=== PATIENT | male | born 1995 | race Caucasian/White ===

== ENCOUNTER 2019-05-28 14:03 | Emergency (ER) | payer OTHER ==
--- NOTE | 2019-05-28 14:11 | UC ---
Dizzy HPI HPI Summary: 24 yo male presents with dizziness. He tells me that over the last 2-3 days he has felt dizziness and weakness. 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 He does mention that yesterday he had an upset stomach and multiple instances of vomiting. Today he feels nauseous, but has not had any vomiting and he is tolerating po well - last ate before coming here. This morning he was working and noticed his symptoms worsen. He went and took a nap in his boss' truck. Boss bought him something to eat and brought him to . Currently pt states mild dizziness and just feels weak all over. He denies headache, SOB, chest pain/pressure, abdominal pain, swelling, or neck pain. He has a history of open heart surgery x4 with the last operation being at age 11. All surgeries through [facility] in [place]. He does not take any medications and denies illicit drug use. - History Of Current Complaint Stated Complaint: DIZZINESS, AND SWEATS Time Seen by Provider: 05/28/19 14:08 Hx Obtained From: Patient Onset/Duration: Sudden Onset - Allergies/Home Medications Allergies/Adverse Reactions: Allergies Allergy/AdvReac Type Severity Reaction Status Date / Time No Known Allergies Allergy Verified 05/28/19 14:19 PMH/Surg Hx/FS Hx/Imm Hx - Additional Past Medical History Additional PMH: Open heart surgery - Surgical History Surgical History: Yes - Family History Known Family History: Positive: None - Social History Occupation: Employed Full-time Lives: With Family Alcohol Use: None Substance Use Type: None Smoking Status (MU): Never Smoked Tobacco Review of Systems All Other Systems Reviewed And Are Negative: No Constitutional: Positive: Negative Skin: Positive: Negative Eyes: Positive: Negative ENT: Positive: Negative Respiratory: Positive: Negative Cardiovascular: Positive: Negative Gastrointestinal: Positive: Vomiting - resolved, Nausea Genitourinary: Positive: Negative Neurovascular: Positive: Negative Musculoskeletal: Positive: Negative Neurological: Positive: Other - dizziness and weakness Psychological: Positive: Negative Physical Exam - Summary Physical Exam Summary: GENERAL: NAD. WDWN. No pain distress. SKIN: Large vertical surgical scar on chest into upper abdomen. HEENT: Head: AT/NC Eyes: EOM intact. Conjunctiva clear without inflammation or discharge. Ears: Hearing grossly normal. TMs intact, no bulging, erythema, or edema. Nose: Nasal mucosa pink and moist. NTTP maxillary and frontal sinus. Throat: Posterior oropharynx without exudates, erythema, or tonsillar enlargement. Uvula midline. NECK: Supple. Nontender. No lymphadenopathy. CHEST: CTAB. No accessory muscle use. Breathing comfortably and in no distress. CV: RRR. Obvious pansystolic murmur. Pulses intact. Cap refill <2seconds ABDOMEN: Soft. NTTP. No distention or guarding. Bowel sounds present NEURO: Alert. PSYCH: Age appropriate behavior. Triage Information Reviewed: Yes Vital Signs: Vital Signs: Temp Pulse Resp BP Pulse Ox 97.8 F 90 16 120/83 100 05/28/19 14:14 05/28/19 14:14 05/28/19 14:14 05/28/19 14:14 05/28/19 14:14 Vital Signs Reviewed: Yes Diagnostics - EKG Summary of EKG Findings: 81 bpm NSR. Bilateral enlargement. Anteroseptal infarcy age indeterminate. No STEMI as read by Dr. Iris New Course/Dx - Course Course Of Treatment: EKG as above. His symptoms could be related to his recent suspected viral GI issues, but given his cardiac history and worsening weakness and dizziness on exertion - I recommend pt be further evaluated in the ED. He was agreeable to this. I recommended ambulance transfer, but he declined and will have his boss with him today drive him now. He was given 324mg chewable ASA prior to departure. - Differential Dx/Diagnosis Provider Diagnosis: Dizziness, Weakness, History of heart surgery Discharge ED - Sign-Out/Discharge Documenting (check all that apply): Patient Departure All imaging exams completed and their final reports reviewed: No Studies - Discharge Plan Condition: Stable Disposition: HOME-RECOMMEND TO ED Referrals: Zac Lamas MD [Primary Care Provider] - Additional Instructions: Please go to the ER for further evaluation of your dizziness and weakness YOU HAVE DECLINED TRANSFER TO THE ER BY AMBULANCE. BE ADVISED THAT NOT TRAVELING IN A MONITORED SETTING YOU COULD BE RISKING WORSENING OF YOUR CONDITION THAT COULD POSE A THREAT TO YOUR LIFE, HEALTH, AND MEDICAL SAFETY. - Billing Disposition and Condition Condition: STABLE Disposition: Home-Recommend to ED - Attestation Statements Provider Attestation: Patient not seen by me I was available for consult Chart reviewed
[2019-05-28 14:19] VITALS: BP 120/83
[2019-05-28] MEDS ORDERED: Aspirin EC TAB* 81 MG TAB.EC PO ONE (14:31)
[2019-05-28] MEDS ORDERED: Aspirin 81 mg CHEW TAB* 81 MG TAB.CHEW PO ONE (14:31)
== END 2019-05-28 14:45 | disposition home health service (06) ==
LOC: UCEAST 14:03
DX: R42 Dizziness and giddiness (principal); R53.1 Weakness
CPT/HCPCS: 93005; 99212; A9270-GY; G0463

== ENCOUNTER 2019-05-28 14:54 | Emergency (ER) | payer OTHER ==
[2019-05-28 15:18] LABS: ABS Eosinophils 0.1 10^3/ul (0-0.6); ABS Lymphocytes 1.2 10^3/ul (1.0-4.8); ABS Monocytes 0.8 10^3/ul (0-0.8); ABS Neutrophils 5.2 10^3/ul (1.5-7.7); Eosinophil % 0.9 %; Hematocrit 44 % (42-52); Hemoglobin 14.9 g/dL (14.0-18.0); Lymphocyte % 16.3 %; Mean Corpuscular HGB Conc 34 g/dL (31-36); Mean Corpuscular Hemoglobin 31 pg (27-31); Mean Corpuscular Volume 91 fL (80-94); Mean Platelet Volume 7.2 fL (7.4-10.4); Platelet Count 246 10^3/uL (150-450); Red Blood Count 4.82 10^6 /uL (4.18-5.48); Red Cell Distribution Width 13 % (10-15); White Blood Count 7.4 10^3/uL (3.5-10.8)
[2019-05-28 15:25] LABS: INR 1.27 (0.82-1.09)
[2019-05-28 15:55] LABS: Albumin 4.4 g/dL (3.2-5.2); Albumin/Globulin Ratio 1.6 (1-3); BUN/Creatinine Ratio 15.7 (8-20); Calcium 9.3 mg/dL (8.6-10.3); EGFR African American 128.2 (>60); EGFR Non-African American 105.9 (>60); Globulin 2.7 g/dL (2-4); Potassium 4.4 mmol/L (3.5-5.0); Total Bilirubin 1.1 mg/dL (0.2-1.0); Total Protein 7.1 g/dL (6.4-8.9)
--- NOTE | 2019-05-28 18:33 | ED ---
Complex/Multi-Sys Presentation - HPI Summary HPI Summary: This pt is a 24 y/o male, with hx of pulmonary atresia with repair, presenting to [facility] c/o fatigue, hills, generalized weakness, myalgia today. Pt reports he woke up feeling generalized weakness today and feeling fatigued. He notes these symptoms began 5 days ago and thought it was viral. Pt states these symptoms lasted over the last few days but came back today. 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 He decided to go to Urgent Care and he was then referred from Urgent Care to the ED. Pt notes he has a runny nose. Denies headache, dizziness, chest pain, SOB, abd pain, nausea, vomiting, cough, congestion, sore throat, ear pain. Denies sick contacts. Pt did not get his flu shot this year, but reports he never gets them. 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 No cardiac issues since then. Pt follows up at [facility] in [place]. Pt does not take any medications on a daily basis. He does admit to chewing tobacco. - History Of Current Complaint Chief Complaint: EDWeakness Time Seen by Provider: 05/28/19 18:19 Hx Obtained From: Patient Onset/Duration: Lasting Hours, Still Present Timing: Hours Severity Currently: Moderate Location: Negative Aggravating Factor(s): nothing Alleviating Factor(s): nothing Associated Signs And Symptoms: Positive: Weakness - generalized, Other - NEGATIVE: sore throat, ear ache, congestion. POSITIVE: runny nose, chills, fatigue, myalgia. Negative: Dizziness, Headache, SOB, Cough, Chest Pain, Nausea , Vomiting, Abdominal Pain, Fever - Allergies/Home Medications Allergies/Adverse Reactions: Allergies Allergy/AdvReac Type Severity Reaction Status Date / Time No Known Allergies Allergy Verified 05/28/19 14:19 PMH/Surg Hx/FS Hx/Imm Hx Endocrine/Hematology History: Denies: Hx Diabetes Cardiovascular History: Reports: Other Cardiovascular Problems/Disorders - pulmonary atresia as a child with repair Denies: Hx Hypertension Psychiatric History: Denies: Hx Eating Disorder, Hx of Violent Episodes Against Others Infectious Disease History: No Infectious Disease History: Denies: Traveled Outside the [place] in Last 30 Days - Family History Known Family History: Negative: Cardiac Disease, Hypertension, Diabetes - Social History Alcohol Use: Occasionally Substance Use Type: Reports: None Smoking Status (MU): Never Smoked Tobacco Review of Systems Positive: Chills, Fatigue. Negative: Fever Positive: Diplopia Positive: Nasal Discharge. Negative: Sore Throat, Ear Ache, Other - NEGATIVE: congestion Negative: Chest Pain Negative: Shortness Of Breath, Cough Negative: Abdominal Pain, Vomiting, Nausea Positive: Myalgia Neurological: Other - NEGATIVE: dizziness Positive: Weakness - generalized. Negative: Headache All Other Systems Reviewed And Are Negative: Yes Physical Exam - Summary Physical Exam Summary: Constitutional: Well-developed, Well-nourished, Alert. (-) Distressed Skin: Warm, Dry HENT: Normocephalic; Atraumatic Eyes: Conjunctiva normal Neck: Musculoskeletal ROM normal neck. (-) JVD, (-) Stridor, (-) Tracheal deviation Cardio: Normal S1, S2, Rhythm regular, rate normal, Heart sounds normal; Intact distal pulses; The pedal pulses are 2+ and symmetric. Radial pulses are 2+ and symmetric. Patient has a murmur. He has a large sternotomy surgical scar. Pulmonary/Chest wall: Effort normal. (-) Respiratory distress, (-) Wheezes, (-) Rales Abd: Soft, (-) tenderness, (-) Distension, (-) Guarding, (-) Rebound Musculoskeletal: (-) Edema Neuro: Alert, Oriented x3 Psych: Mood and affect Normal Triage Information Reviewed: Yes Vital Signs On Initial Exam: Initial Vitals Temp Pulse Resp BP Pulse Ox 97.9 F 85 18 104/70 100 05/28/19 15:02 05/28/19 15:02 05/28/19 15:02 05/28/19 15:02 05/28/19 15:02 Vital Signs Reviewed: Yes Procedures - Sedation Patient Received Moderate/Deep Sedation with Procedure: No Diagnostics - Vital Signs Vital Signs Temp Pulse Resp BP Pulse Ox 05/28/19 18:13 71 23 104/55 98 05/28/19 16:46 97.5 F 70 20 96/61 97 05/28/19 15:02 97.9 F 85 18 104/70 100 - Laboratory Lab Results: Lab Results 1005/28/19 05/28/19 Range/Units 15:11 15:11 15:11 WBC 7.4 (3.5-10.8) 10^3/uL RBC 4.82 (4.18-5.48) 10^6 /uL Hgb 14.9 (14.0-18.0) g/dL Hct 44 (42-52) % MCV 91 (80-94) fL MCH 31 (27-31) pg MCHC 34 (31-36) g/dL RDW 13 (10-15) % Plt Count 246 (150-450) 10^3/uL MPV 7.2 L (7.4-10.4) fL Neut % (Auto) 70.8 % Lymph % (Auto) 16.3 % Rush % (Auto) 11.5 % Eos % (Auto) 0.9 % Baso % (Auto) 0.5 % Absolute Neuts (auto) 5.2 (1.5-7.7) 10^3/ul Absolute Lymphs (auto) 1.2 (1.0-4.8) 10^3/ul Absolute Monos (auto) 0.8 (0-0.8) 10^3/ul Absolute Eos (auto) 0.1 (0-0.6) 10^3/ul Absolute Basos (auto) 0.0 (0-0.2) 10^3/ul Absolute Nucleated RBC 0.0 10^3/ul Nucleated RBC % 0.0 INR (Anticoag Therapy) 1.27 H (0.82-1.09) Sodium 137 (135-145) mmol/L Potassium 4.4 (3.5-5.0) mmol/L Chloride 103 (101-111) mmol/L Carbon Dioxide 30 (22-32) mmol/L Anion Gap 4 (2-11) mmol/L BUN 14 (6-24) mg/dL Creatinine 0.89 (0.67-1.17) mg/dL Est GFR ( Amer) 128.2 (>60) Est GFR (Non-Af Amer) 105.9 (>60) BUN/Creatinine Ratio 15.7 (8-20) Glucose 85 (70-100) mg/dL Calcium 9.3 (8.6-10.3) mg/dL Total Bilirubin 1.10 H (0.2-1.0) mg/dL AST 22 (13-39) U/L ALT 23 (7-52) U/L Alkaline Phosphatase 75 (34-104) U/L Troponin I 0.00 (<0.04) ng/mL Total Protein 7.1 (6.4-8.9) g/dL Albumin 4.4 (3.2-5.2) g/dL Globulin 2.7 (2-4) g/dL Albumin/Globulin Ratio 1.6 (1-3) 05/28/19 Range/Units 17:20 WBC (3.5-10.8) 10^3/uL RBC (4.18-5.48) 10^6 /uL Hgb (14.0-18.0) g/dL Hct (42-52) % MCV (80-94) fL MCH (27-31) pg MCHC (31-36) g/dL RDW (10-15) % Plt Count (150-450) 10^3/uL MPV (7.4-10.4) fL Neut % (Auto) % Lymph % (Auto) % Rush % (Auto) % Eos % (Auto) % Baso % (Auto) % Absolute Neuts (auto) (1.5-7.7) 10^3/ul Absolute Lymphs (auto) (1.0-4.8) 10^3/ul Absolute Monos (auto) (0-0.8) 10^3/ul Absolute Eos (auto) (0-0.6) 10^3/ul Absolute Basos (auto) (0-0.2) 10^3/ul Absolute Nucleated RBC 10^3/ul Nucleated RBC % INR (Anticoag Therapy) (0.82-1.09) Sodium (135-145) mmol/L Potassium (3.5-5.0) mmol/L Chloride (101-111) mmol/L Carbon Dioxide (22-32) mmol/L Anion Gap (2-11) mmol/L BUN (6-24) mg/dL Creatinine (0.67-1.17) mg/dL Est GFR ( Amer) (>60) Est GFR (Non-Af Amer) (>60) BUN/Creatinine Ratio (8-20) Glucose (70-100) mg/dL Calcium (8.6-10.3) mg/dL Total Bilirubin (0.2-1.0) mg/dL AST (13-39) U/L ALT (7-52) U/L Alkaline Phosphatase (34-104) U/L Troponin I 0.00 (<0.04) ng/mL Total Protein (6.4-8.9) g/dL Albumin (3.2-5.2) g/dL Globulin (2-4) g/dL Albumin/Globulin Ratio (1-3) Result Diagrams: 05/28/19 15:11 05/28/19 15:11 Lab Statement: Any lab studies that have been ordered have been reviewed, and results considered in the medical decision making process. - EKG 14:57 Cardiac Rate: NL - at 78 bpm EKG Rhythm: Sinus Rhythm Summary of EKG Findings: An EKG at 1457 reveals sinus rhythm at 78 bpm shows anterior Q-waves, no STEMI, no prior for comparison (hx of pulmonary atresia). Complex Multi-Symp Course/Dx Assessment/Plan: Pt is a 24 y/o male, with hx of pulmonary atresia with repair, presenting to [facility] c/o fatigue, hills, generalized weakness, myalgia today. Pt reports he woke up feeling generalized weakness today and feeling fatigued. He notes these symptoms began 5 days ago and thought it was viral. Pt states these symptoms lasted over the last few days but came back today. 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 He decided to go to Urgent Care and he was then referred from Urgent Care to the ED. Lab work was obtained. Pt will call his PCP tomorrow for follow up. Pt with hx of pulmonary atresia that has been repaired in his child mathis. EKG is wonky but probably normal as we don't have an old for comparison. He will be discharged home with follow up from his PCP. - Diagnoses Provider Diagnoses: Viral syndrome Discharge ED - Sign-Out/Discharge Documenting (check all that apply): Patient Departure - Discharge home - Discharge Plan Condition: Stable Disposition: HOME Patient Education Materials: Viral Syndrome (ED) Referrals: Zac Lamas MD [Primary Care Provider] - - Billing Disposition and Condition Condition: STABLE Disposition: Home - Attestation Statements Document Initiated by Giovaniibbrit: Yes Documenting Scribe: Shell Holloway Provider For Whom Scribe is Documenting (Include Credential): Erwin Richardson MD Scribe Attestation: IShell, scribed for Erwin Richardson MD on 06/10/19 at 1534. Scribe Documentation Reviewed: Yes Provider Attestation: The documentation as recorded by the Shell nix accurately reflects the service I personally performed and the decisions made by me, Erwin Richardson MD Status of Scribe Document: Viewed
[2019-05-28 18:53] VITALS: BP 106/57
== END 2019-05-28 19:00 | disposition home or self-care (01) ==
LOC: ED 14:54
DX: B34.9 Viral infection, unspecified (principal); F17.290 Nicotine dependence, other tobacco product, uncomplicated; Z87.74 Personal history of (corrected) congenital malformations of heart and circulatory system
CPT/HCPCS: 36415; 80053; 84484; 85025; 85610; 93005; 99283